=== PATIENT | female | born 1965 | race Caucasian/White ===

== ENCOUNTER 2019-10-15 09:32 | Inpatient (IN) | payer BC, MEDICAID, OTHER ==
[2019-10-15] MEDS: Propofol* 100 ML IV SCH ×2 (13:00→21:37)
[2019-10-15] MEDS ORDERED: NS 0.9% 1000 ML** 1,000 ML IV SCH (13:15)
[2019-10-15] MEDS ORDERED: Phytonadione IV (Adult)* 10 MG/ML 1 ML AMP IV ONE ×2 (13:31→14:30)
--- NOTE | 2019-10-15 14:08 | HP ---
History of Present Illness - History of Present Illness Reason for Visit: Respiratory distress History of Present Illness: HPI is obtained from nursing and from chart since patient is intubated and no family is present. Patient is a transfer from [facility]. Apparently she was at home, her son found her to have altered mental status and respiratory distress and called the ambulance. She was found to be obtunded and bipap was placed for hypercapnic respiratory failure. However, since she is a COVID r/o and having respiratory distress, the safe decision was made to intubate and transfer to [facility]. Only known medical history of ETOH abuse (according to chart, hasnt had etoh in 1 year), and COPD. PMH is otherwise unknown. Has not seen a doctor is 10years. Upon EMS arrival to her home, it was in disarray with a large number of cats and very strong cat urine odor. - Past Medical History Pulmonary: COPD Review of Systems - Review of Systems Constitutional: Positive: Other - ROS is unable to be attained d/t intubation/ sedation - Medications/Allergies Allergies/Adverse Reactions: Allergies Allergy/AdvReac Type Severity Reaction Status Date / Time Penicillins Allergy Unknown Verified 10/15/19 13:08 Reaction Details Medications: Current Medications Chlorhexidine Gluconate (Peridex Mouth Wash 0.12%*) 15 ml TOPICAL Q4H DONNA Sodium Chloride (Ns 0.9% 1000 Ml) 1,000 mls @ 50 mls/hr IV .PER RATE DONNA Propofol (Diprivan*) 100 mls @ 0 mls/hr IV .PER PROTOCOL DONNA; Protocol Nystatin (Nystatin Oint*) 1 applic TOPICAL BID DONNA Pantoprazole Sodium (Protonix Iv*) 40 mg IV Q24H DONNA Phytonadione (Vitamin K1 Inj (Adult)*) 2.5 mg IV ONCE ONE Stop: 10/15/19 13:32 Exam - Exam Vital Signs: Vital Signs (72 hours) 10/15/19 10/15/19 10/15/19 12:09 12:21 12:30 Temperature 96.8 F Pulse Rate 94 96 97 Respiratory 17 Rate Blood Pressure 143/125 148/100 (mmHg) O2 Sat by Pulse 89 100 100 Oximetry 10/15/19 10/15/19 10/15/19 12:49 13:00 13:15 Temperature Pulse Rate 96 93 91 Respiratory 16 Rate Blood Pressure 128/87 113/79 112/78 (mmHg) O2 Sat by Pulse 100 100 100 Oximetry General: No acute distress HEENT: Atraumatic, Other - Pupils pinpoint bilaterally. Lungs: Clear to auscultation Cardiovascular: Regular rate, No murmurs Abdomen: Normal bowel sounds - obese, Other - In the groin and panis area, there is a large area of redness and excoriation, concerning for fungus Extremities: Other - clubbing to nails, ?dirt under nails Neurological: Other - pupils pinpoint, breathing over vent. Otherwise CHAITANYA Assessment/Plan - Assessment/Plan Assessment: 53F with limited information, presents on 10/15/19 initially to [facility] with altered mental status and respiratory distress. Only known medical history of ETOH abuse and COPD. O2 sat on admission was 50%. She ultimately ended up requiring bipap and is being ruled out for COVID 19. Therefore, she was intubated and sent to [facility]. Diagnoses: 1. Acute hypoxic and hyercapnic respiratory failure 2. R/O COVID 19 3. AMS likely d/t CO2 retention 4. MITCHELL 5. Transaminitis 6. Supratherapeutic INR 7. Hyponatremia Plan: 1. Acute hypoxic and hyercapnic respiratory failure. Patient initially placed on bipap but needed to be intubated and transferred to [facility]. Her O2% on admission to [place] was 50% and CO2 was 77. Unknown if this is COPD exacerbation, CO2 retention, or COVID 19. 2. R/O COVID 19. Swab sent from [place]. Will need to follow up on results starting tomorrow. Continue airborne precautions. Will keep euvolemic. She may be dehydrated considering her low Na, creatinine of 1.5, and hgb 16. 3. She received 1L bolus at OSH. Will continue on NS @ 50cc/hr and transition to tube feeds tomorrow. 3. AMS likely d/t CO2 retention. Will keep sedated on ventilator with propofol and wean for RASS -2. 4. MITCHELL. Possibly d/t dehydration. Will continue with gently hydration and recheck BMP @ 1600. Monitor UOP. Will be cautious of IVF d/t PUI 5. Transaminitis. Possibly d/t etoh abuse, but unknown etiology at this time. Will trend. 6. Supratherapeutic INR. Likely r/t transaminitis, unknown what kind of home medications she may be on. Will give 2.5mg of Vitamin K and recheck INR in AM 7. Hyponatremia. Dehydration vs etoh abuse. Continue NS @ 50cc/hr 8. Probable fungal infection of of groin and panis. Nystatin ointment BID and keep dry 9. Leukocytosis. Unknown etiology. Will trend. Monitor for fevers. Disposition: patient was admitted to the ICU, transferred from [facility] Critical Care time: 45mins
[2019-10-15] MEDS ORDERED: Phytonadione IV (Adult)* 2.5 MG in NS 0.9% 50 ML* 50 ML IV ONE (15:00)
[2019-10-15] MEDS: Nystatin OINT* 15 GM TOPICAL SCH ×2 (15:17→21:12)
[2019-10-15] MEDS: Pantoprazole IV* 40 MG IV SCH (15:18)
[2019-10-15] MEDS: Chlorhexidine MOUTHWASH 0.12%* 15 ML UDC TOPICAL SCH ×3 (15:18→21:12)
[2019-10-15 17:29] LABS: Albumin 3.2 g/dL (3.2-5.2); Albumin/Globulin Ratio 1.3 (1-3); BUN/Creatinine Ratio 47.5 (8-20); Calcium 7.6 mg/dL (8.6-10.3); EGFR African American 56.4 (>60); EGFR Non-African American 46.6 (>60); Globulin 2.5 g/dL (2-4); Total Bilirubin 3.5 mg/dL (0.2-1.0); Total Protein 5.7 g/dL (6.4-8.9)
[2019-10-15 17:46] LABS: Hematocrit 48 % (35-47); Hemoglobin 15.6 g/dL (12.0-16.0); Mean Corpuscular HGB Conc 32 g/dL (31-36); Mean Corpuscular Hemoglobin 31 pg (27-31); Mean Corpuscular Volume 96 fL (80-97); Mean Platelet Volume 8.4 fL (7.4-10.4); Platelet Count 49 10^3/uL (150-450); Potassium 4.8 mmol/L (3.5-5.0); Red Blood Count 5.03 10^6 /uL (3.70-4.87); Red Cell Distribution Width 16 % (10-15); White Blood Count 23.5 10^3/uL (3.5-10.8)
[2019-10-16] MEDS: Chlorhexidine MOUTHWASH 0.12%* 15 ML UDC TOPICAL SCH ×6 (00:37→21:17)
[2019-10-16 05:02] LABS: Hematocrit 51 % (35-47); Hemoglobin 16.1 g/dL (12.0-16.0); Mean Corpuscular HGB Conc 32 g/dL (31-36); Mean Corpuscular Hemoglobin 31 pg (27-31); Mean Corpuscular Volume 97 fL (80-97); Mean Platelet Volume 9.1 fL (7.4-10.4); Platelet Count 42 10^3/uL (150-450); Red Blood Count 5.23 10^6 /uL (3.70-4.87); Red Cell Distribution Width 16 % (10-15); White Blood Count 22.3 10^3/uL (3.5-10.8)
[2019-10-16 05:07] LABS: INR 1.56 (0.82-1.09)
[2019-10-16 05:16] LABS: Albumin 3.2 g/dL (3.2-5.2); Albumin/Globulin Ratio 1.2 (1-3); BUN/Creatinine Ratio 61.1 (8-20); Calcium 7.9 mg/dL (8.6-10.3); EGFR African American 73.9 (>60); EGFR Non-African American 61.1 (>60); Globulin 2.6 g/dL (2-4); Total Protein 5.8 g/dL (6.4-8.9)
[2019-10-16] MEDS: Propofol* 100 ML IV SCH ×4 (05:29→21:19)
[2019-10-16 05:37] LABS: Potassium 5.2 mmol/L (3.5-5.0)
[2019-10-16 05:43] LABS: Polychromasia 1+
[2019-10-16 05:45] LABS: ABS Monocytes 1.4 10^3/ul (0-0.8); ABS Neutrophils 19.8 10^3/ul (1.5-7.7); ABS Nucleated RBC 0.4 10^3/ul; Eosinophil % 0.2 %; Lymphocyte % 4.4 %; Nucleated Red Blood Cells % 1.9
[2019-10-16] MEDS: Multivitamins ADULT w/MIN LIQ* 15 ML UDC PO SCH (07:41)
[2019-10-16] MEDS: Nystatin OINT* 15 GM TOPICAL SCH ×2 (07:41→21:17)
[2019-10-16] MEDS: Thiamine TAB* 100 MG TAB PO SCH (07:42)
[2019-10-16] MEDS ORDERED: Azithromycin 500 mg/250 ml NS 500 MG/250 ML BAG IVPB SCH (08:00)
[2019-10-16] MEDS ORDERED: Ciprofloxacin 400MG IVPREMIX(* 400 MG/200 ML BAG IVPB SCH (08:00)
[2019-10-16] MEDS ORDERED: Metoprolol Tartrate IV* 1 MG/ML 5 ML VIAL ONE (10:16)
[2019-10-16] MEDS: cefTRIAXone(*) 1 GM in NS 0.9% 50 ML* 50 ML IVPB SCH (11:51)
[2019-10-16] MEDS: metroNIDAZOLE IV 500 MG/100ML* 500 MG/100 ML BAG IVPB SCH ×2 (12:29→16:44)
[2019-10-16 13:15] LABS: BUN/Creatinine Ratio 69.1 (8-20); Blood Urea Nitrogen 47 mg/dL (6-24); CO2 Carbon Dioxide 35 mmol/L (22-32); Calcium 7.7 mg/dL (8.6-10.3); Chloride 88 mmol/L (101-111); EGFR African American 108.7 (>60); EGFR Non-African American 89.8 (>60); Glucose 131 mg/dL (70-100); Magnesium 2.4 mg/dL (1.9-2.7); Phosphorus 2.2 mg/dL (2.5-5.0); Sodium 126 mmol/L (135-145)
[2019-10-16] MEDS: Metoprolol Tartrate IV* 1 MG/ML 5 ML VIAL IV PRN (13:18)
[2019-10-16] MEDS: Azithromycin IV(*) 250 MG in NS 0.9% 250 ML* 250 ML IVPB SCH (13:59)
[2019-10-16 14:15] LABS: Troponin I 0.04 ng/mL (<0.03)
[2019-10-16 14:17] LABS: Anion Gap 3 mmol/L (2-11)
[2019-10-16] MEDS: Pantoprazole IV* 40 MG IV SCH (15:07)
[2019-10-16 15:30] LABS: BUN/Creatinine Ratio 75.4 (8-20); EGFR African American 133.2 (>60); EGFR Non-African American 110.1 (>60)
[2019-10-16] MEDS ORDERED: Furosemide IV* 10 MG/ML 2 ML VIAL (20 MG) IV SLOW PU ONE ×2 (17:23→18:00)
--- NOTE | 2019-10-16 18:21 | PN ---
<Lina Ellis - Last Filed: 10/16/19 18:19> Progress Note - Progress Note Date of Service: 10/16/19 Note: Central Line Procedure Note Indication: Access Diagnosis: Acute respiratory failure, AMS, r/o COVID Performed by: Nova, supervised by Dr Ai Connell Consent: Informed; placed in bedside chart Risks of procedure were explained if possible, all risks of pain/discomfort, bleeding, infection, PTX, Hemotx, need for chest tube, air/wire embolism, vessel injury, , and failed procedure disclosed and understanding verbalized [place] Protocol: Time-out was performed and the correct patient and site were verified - Prior labs/history was reviewed prior to procedure - Full sterile precautions with chlorhexidine/full drapes/gowns/gloves utilized - Right IJ visualized with ultrasound - Vessel accessed under ultrasound guidance with return of nonpulsatile blood. A guidewire was passed into vessel and confirmed in vessel with ultrasound. 1 attempt was made to access vessel. Vessel was dilated and cathetor was passed over wire into vessel. All ports demonstrated good blood return and flushed. Catheter was sutured to site and dressing applied. Adequate hemostasis was achieved EBL 5 cc No immediate complications noted, patient tolerated procedure well. Post Procedure CXR: Pending <Ai Connell - Last Filed: 10/17/19 15:54> Progress Note - Progress Note Note: Informed consent was obtained over the phone from her son. Chest xray showed central line in the superior vena cava without complications.
--- NOTE | 2019-10-16 18:33 | PN ---
Date of Service: 10/16/19 Critical Care Services: No acute events overnight. Remains comfortable on propofol for sedation. EtCO2 elevated so pressure control was increased to 26. Vital Signs: Temp Pulse Resp BP SpO2 FiO2 98.3 F 86 23 111/61 96 45 10/16/19 15:23 10/16/19 18:00 10/16/19 18:00 10/16/19 18:00 10/16/19 18:00 10/15 16:29 Physical Exam: Gen: Laying in bed, NAD, sedated on propofol. HEENT: Normocephalic, atraumatic, moist mucus membranes, neck supple Lungs: clear to auscultation, diminished in bases, no rhonchi, crackles or wheezes Cardiac: tachycardic, s1s2, no obvious murmurs Abdomen: obese, soft, BS present Extremities: Dirt under fingernails, toes are dirty and purple, about the same from yesterday. Poor general circulation. cool to touch. Skin: patient has very red, inflammed, rash with excoriated wounds to lower abdomen/panis/groin Neuro: Sedated, not paused for exam , just prior to CVC insertion. PERRL 3mm. Minimal spontaneous movement all extremities, breathing above vent. Fluid Balance (Past 24 Hours): I= O= Net Intake & Output 10/14/19 10/15/19 10/16/19 10/17/19 06:59 06:59 06:59 06:59 Intake Total 921 675 Output Total 1010 665 Balance -89 10 Weight 213 lb 13.574 oz Intake: IV Fluids 701 544 ABX - AZITHROMYCIN 270 ABX - CEFTRIAXONE 58 ABX - FLAGYL 108 NS (0.9%) 701 108 IVPB 50 Vitamin K 50 Medicated IV 170 131 CC - Propofol/Diprivan 170 131 Output: Castillo 1010 665 Labs: Laboratory Results - last 24 hr 10/16/19 10/16/19 10/16/19 04:50 04:50 04:50 WBC 22.3 H RBC 5.23 H Hgb 16.1 H Hct 51 H MCV 97 MCH 31 MCHC 32 RDW 16 H Plt Count 42 L MPV 9.1 Neut % (Auto) 88.8 Lymph % (Auto) 4.4 [place] % (Auto) 6.4 Eos % (Auto) 0.2 Baso % (Auto) 0.2 Absolute Neuts (auto) 19.8 H Absolute Lymphs (auto) 1.0 Absolute Monos (auto) 1.4 H Absolute Eos (auto) 0.0 Absolute Basos (auto) 0.0 Absolute Nucleated RBC 0.4 Immature Gran % 6.0 Neutrophils % 84.0 Band Neutrophils % 4.0 Lymphocytes % 4.0 Monocytes % 6.0 Metamyelocytes % 1.0 Myelocytes % 1.0 Nucleated RBC % 1.9 Nucleated RBCs/100 WBC 3.0 H Normal RBC Morphology Not Reportable Polychromasia 1+ Anisocytosis 1+ INR (Anticoag Therapy) 1.56 H Patient Temperature ABG pH ABG pH (Temp Correct) ABG pCO2 ABG pCO2 (Temp Corrct ABG pO2 ABG pO2 (Temp Correct ABG HCO3 ABG O2 Saturation ABG Base Excess Respiration Rate Ventilator Type Vent Mode FiO2 Inspiratory Time PEEP Pressure Support Pressure Control EPAP IPAP BiPAP Sodium 124 L Potassium 5.2 H Chloride 86 L Carbon Dioxide 34 H Anion Gap 4 BUN 58 H Creatinine 0.95 Est GFR ( Amer) 73.9 Est GFR (Non-Af Amer) 61.1 BUN/Creatinine Ratio 61.1 H Glucose 119 H Calcium 7.9 L Phosphorus Magnesium Total Bilirubin 3.00 H AST 385 H ALT 850 H Alkaline Phosphatase 132 H Total Creatine Kinase 406 H Troponin I Total Protein 5.8 L Albumin 3.2 Globulin 2.6 Albumin/Globulin Ratio 1.2 10/16/19 10/16/19 10/16/19 06:27 08:18 13:00 WBC RBC Hgb Hct MCV MCH MCHC RDW Plt Count MPV Neut % (Auto) Lymph % (Auto) [place] % (Auto) Eos % (Auto) Baso % (Auto) Absolute Neuts (auto) Absolute Lymphs (auto) Absolute Monos (auto) Absolute Eos (auto) Absolute Basos (auto) Absolute Nucleated RBC Immature Gran % Neutrophils % Band Neutrophils % Lymphocytes % Monocytes % Metamyelocytes % Myelocytes % Nucleated RBC % Nucleated RBCs/100 WBC Normal RBC Morphology Polychromasia Anisocytosis INR (Anticoag Therapy) Patient Temperature Not Reportable ABG pH 7.27 L ABG pH (Temp Correct) Not Reportable ABG pCO2 68 H ABG pCO2 (Temp Corrct Not Reportable ABG pO2 171 H ABG pO2 (Temp Correct Not Reportable ABG HCO3 26.7 ABG O2 Saturation 99.4 H ABG Base Excess 2.3 H Respiration Rate 22 Ventilator Type Not Reportable Vent Mode pcv FiO2 55 Inspiratory Time 0.8 PEEP 5 Pressure Support Not Reportable Pressure Control 22 EPAP Not Reportable IPAP Not Reportable BiPAP Not Reportable Sodium 126 L Potassium 5.4 H TNP Chloride 88 L Carbon Dioxide 35 H Anion Gap 3 BUN 47 H Creatinine 0.68 Est GFR ( Amer) 108.7 Est GFR (Non-Af Amer) 89.8 BUN/Creatinine Ratio 69.1 H Glucose 131 H Calcium 7.7 L Phosphorus 2.2 L Magnesium Cancelled 2.4 Total Bilirubin AST ALT Alkaline Phosphatase Total Creatine Kinase Troponin I 0.04 H* Total Protein Albumin Globulin Albumin/Globulin Ratio 10/16/19 15:05 WBC RBC Hgb Hct MCV MCH MCHC RDW Plt Count MPV Neut % (Auto) Lymph % (Auto) [place] % (Auto) Eos % (Auto) Baso % (Auto) Absolute Neuts (auto) Absolute Lymphs (auto) Absolute Monos (auto) Absolute Eos (auto) Absolute Basos (auto) Absolute Nucleated RBC Immature Gran % Neutrophils % Band Neutrophils % Lymphocytes % Monocytes % Metamyelocytes % Myelocytes % Nucleated RBC % Nucleated RBCs/100 WBC Normal RBC Morphology Polychromasia Anisocytosis INR (Anticoag Therapy) Patient Temperature ABG pH ABG pH (Temp Correct) ABG pCO2 ABG pCO2 (Temp Corrct ABG pO2 ABG pO2 (Temp Correct ABG HCO3 ABG O2 Saturation ABG Base Excess Respiration Rate Ventilator Type Vent Mode FiO2 Inspiratory Time PEEP Pressure Support Pressure Control EPAP IPAP BiPAP Sodium 128 L Potassium 5.0 Chloride 91 L Carbon Dioxide 32 Anion Gap 5 BUN 43 H Creatinine 0.57 Est GFR ( Amer) 133.2 Est GFR (Non-Af Amer) 110.1 BUN/Creatinine Ratio 75.4 H Glucose 125 H Calcium 7.0 L Phosphorus Magnesium Total Bilirubin AST ALT Alkaline Phosphatase Total Creatine Kinase Troponin I Total Protein Albumin Globulin Albumin/Globulin Ratio Studies: Gallbladder US 10/15: Hepatomegaly and hepatosteatosis CXR 10/15: no significant interval change CXR: 10/14: Mild patchy prominence of the interstitial markings and alveolar consolidation bilaterally concerning for bronchopneumonia without significant change. Suggestion of bulla at the left lung apex. Nutrition: Jevity 1.2 Impression: 53F with only known COPD and etoh/tobacco abuse, presents on 10/15/19 with AMS and respiratory distress. She was ultimately intubated and COVID sent out. Transferred from [facility]. DIAGNOSES: 1. Acute hypoxic and hypercapnic respiratory failure 2. R/O COVID 19 3. AMS likely d/t CO2 retention 4. MITCHELL 5. Transaminitis 6. Supratherapeutic INR 7. Hyponatremia Plan: NEURO: - Sedated with propofol with goal RASS -2 CVS: - BP appears stable - right IJ was inserted today for access. CXR confirmed placement - patient started going into irregular rhythm, resembling afib/aflutter at times. HR would go up into 140's. Was given PRN metoprolol with positive effect. PULMONARY: - Acute hypoxic and hypercapnic respiratory failure. Increased pressure control this AM d/t high EtCO2. Will trend these - Chest xray appears stable - COPD. Continue supportive treatment. Patient continues to smoke 1-2 PPD per her son. GI: - Started TF. Discontinued IVF - LFTs are trending down. RUQ US showed only hepatomegaly and hepatosteatos RENAL: - Replace electrolytes to keep K >4 and mag >2. Difficulty with the lab to get an accurate K level. Final level was 5. Will be given 20mg lasix to help reduce this slowly. Also need to aim for euvomlemia to hypovolemia. - Continue castillo - Kidney function is normalizing ENDOCRINE: - Na is normalizing. HEME: - INR trending down. Most recent was 1.56. - Thrombocytopenia. acute, unknown baseline or etiology. Infection vs etoh abuse. - Consider chemical DVT prophylaxis tomorrow. ID: - WBC continue to be elevated and initial blood cultures at [place] were positive. Ordered Wounds: significant rash/excoriation to abdomen/panis/groin. Wound care consult ordered GI prophylaxis: PPI DVT prophylaxis: SCDs. Consider starting lovenox tomorrow now that INR is trending down and kidney function is improving Code status: full Disposition: patient requires critical care for respiratory failure, ventilator management Critical Care Time: 30 mins excluding procedures
[2019-10-16] MEDS ORDERED: Furosemide IV* 10 MG/ML 2 ML VIAL (20 MG) IV ONE (20:00)
[2019-10-17] MEDS: metroNIDAZOLE IV 500 MG/100ML* 500 MG/100 ML BAG IVPB SCH ×3 (00:43→17:07)
[2019-10-17] MEDS: Chlorhexidine MOUTHWASH 0.12%* 15 ML UDC TOPICAL SCH ×7 (00:43→23:29)
[2019-10-17] MEDS: Metoprolol Tartrate IV* 1 MG/ML 5 ML VIAL IV PRN (02:01)
--- NOTE | 2019-10-17 03:25 | PN ---
Hospitalist Progress Note Date of Service: 10/17/19 HOSPITALIST ADDENDUM Called by RN because BP is trending down, with SBP in the mid 70s. She was diuresed during day shift and as per progress note they're aiming for euvolemia , so will avoid IVF for now. Start low dose Levophed and monitor.
[2019-10-17] MEDS: Norepinephrine 16MCG/ML IVPRE* 4,000 MCG/250 ML BAG IV SCH ×2 (03:54→15:52)
[2019-10-17 06:16] LABS: ABS Monocytes 1.6 10^3/ul (0-0.8); ABS Neutrophils 17.2 10^3/ul (1.5-7.7); ABS Nucleated RBC 0.1 10^3/ul; Eosinophil % 0.2 %; Hematocrit 48 % (35-47); Hemoglobin 15.4 g/dL (12.0-16.0); Lymphocyte % 5.1 %; Mean Corpuscular HGB Conc 32 g/dL (31-36); Mean Corpuscular Hemoglobin 31 pg (27-31); Mean Corpuscular Volume 96 fL (80-97); Mean Platelet Volume 10.4 fL (7.4-10.4); Nucleated Red Blood Cells % 0.5; Platelet Count 50 10^3/uL (150-450); Red Blood Count 4.98 10^6 /uL (3.70-4.87); Red Cell Distribution Width 16 % (10-15); White Blood Count 19.8 10^3/uL (3.5-10.8)
[2019-10-17 06:28] LABS: Albumin 2.9 g/dL (3.2-5.2); Albumin/Globulin Ratio 1.1 (1-3); Alkaline Phosphatase 125 U/L (34-104); BUN/Creatinine Ratio 59.6 (8-20); Blood Urea Nitrogen 34 mg/dL (6-24); CO2 Carbon Dioxide 39 mmol/L (22-32); Chloride 88 mmol/L (101-111); EGFR African American 133.2 (>60); EGFR Non-African American 110.1 (>60); Globulin 2.6 g/dL (2-4); Glucose 197 mg/dL (70-100); Sodium 128 mmol/L (135-145); Total Protein 5.5 g/dL (6.4-8.9)
[2019-10-17 06:45] LABS: Anion Gap 1 mmol/L (2-11)
[2019-10-17 06:50] LABS: ALT 537 U/L (7-52)
[2019-10-17] MEDS: Thiamine TAB* 100 MG TAB PO SCH (07:52)
[2019-10-17] MEDS: Nystatin OINT* 15 GM TOPICAL SCH ×2 (07:52→21:05)
[2019-10-17] MEDS: Multivitamins ADULT w/MIN LIQ* 15 ML UDC PO SCH (07:52)
[2019-10-17] MEDS: Folic Acid TAB* 1 MG PO SCH (07:52)
[2019-10-17 08:41] LABS: Creatine Kinase 131 U/L (10-223)
[2019-10-17 08:44] LABS: Magnesium 2.3 mg/dL (1.9-2.7)
[2019-10-17 08:48] LABS: Troponin I 0.06 ng/mL (<0.03)
[2019-10-17] MEDS: cefTRIAXone(*) 1 GM in NS 0.9% 50 ML* 50 ML IVPB SCH (08:59)
[2019-10-17] MEDS: Senna TAB 8.6 mg* TAB PO SCH ×2 (09:37→20:45)
[2019-10-17] MEDS: Docusate LIQ* 100 MG/10 ML UDC PO SCH ×2 (09:37→20:45)
[2019-10-17] MEDS: Azithromycin IV(*) 250 MG in NS 0.9% 250 ML* 250 ML IVPB SCH (10:27)
[2019-10-17] MEDS: Enoxaparin(*) 40 MG/0.4 ML SYR SUBCUT SCH (13:38)
[2019-10-17] MEDS: Pantoprazole IV* 40 MG IV SCH (13:38)
--- NOTE | 2019-10-17 14:37 | PN ---
Date of Service: 10/17/19 Critical Care Services: Overnight patient became agitated and attempted to self extubate. Propofol was increased and BP decreased. Levo was started low dose since we are avoiding giving additional fluids at this time. Has afib intermittently. Vital Signs: Temp Pulse Resp BP SpO2 FiO2 96.6 F 101 16 100/68 97 45 10/17/19 13:30 10/17/19 13:30 10/17/19 13:00 10/17/19 13:30 10/17/19 13:30 10/16 12:00 Physical Exam: Gen: Laying in bed, NAD, sedated on propofol. HEENT: Normocephalic, atraumatic, moist mucus membranes, neck supple Lungs: clear to auscultation, no rhonchi, crackles or wheezes Cardiac: regular, s1s2, no obvious murmurs Abdomen: obese, soft, BS present Extremities: Dirt under fingernails, toes are dirty and purple, no change since admission. Poor general circulation. distally cool to touch. Skin: patient has very red, inflammed, rash with excoriated wounds to lower abdomen/panis/groin Neuro: Sedated, not paused for exam, PERRL 4mm. Not breathing above vent. Minimal movement BUE on noxious stimuli. Fluid Balance (Past 24 Hours): I= O= Net Intake & Output 10/15/19 10/16/19 10/17/19 10/18/19 06:59 06:59 06:59 06:59 Intake Total 921 1120 1475.5 Output Total 1010 1960 405 Balance -89 -840 1070.5 Weight 213 lb 13.574 oz 211 lb 13.828 oz Intake: IV Fluids 701 584 43.5 ABX - AZITHROMYCIN 270 ABX - CEFTRIAXONE 58 ABX - FLAGYL 108 NS (0.9%) 701 148 43.5 IVPB 50 227 400 ABX - AZITHROMYCIN 250 ABX - CEFTRIAXONE 50 Flagyl 227 100 Vitamin K 50 Medicated IV 170 309 404 CC - Norepinephrine/ 176 Levophed CC - Propofol/Diprivan 170 309 228 Tube Feeding 578 Tube Feeding Flush Amount 50 Output: Castillo 1010 1960 405 Labs: Laboratory Results - last 24 hr 10/16/19 10/17/19 10/17/19 15:05 05:48 05:48 WBC 19.8 H RBC 4.98 H Hgb 15.4 Hct 48 H MCV 96 MCH 31 MCHC 32 RDW 16 H Plt Count 50 L MPV 10.4 Neut % (Auto) 86.8 Lymph % (Auto) 5.1 [place] % (Auto) 7.9 Eos % (Auto) 0.2 Baso % (Auto) 0.0 Absolute Neuts (auto) 17.2 H Absolute Lymphs (auto) 1.0 Absolute Monos (auto) 1.6 H Absolute Eos (auto) 0.0 Absolute Basos (auto) 0.0 Absolute Nucleated RBC 0.1 Nucleated RBC % 0.5 Sodium 128 L Potassium 5.0 Chloride 91 L Carbon Dioxide 32 Anion Gap 5 BUN 43 H Creatinine 0.57 Est GFR ( Amer) 133.2 Est GFR (Non-Af Amer) 110.1 BUN/Creatinine Ratio 75.4 H Glucose 125 H Lactic Acid 0.9 Calcium 7.0 L Magnesium Total Bilirubin AST ALT Alkaline Phosphatase Total Creatine Kinase Troponin I Total Protein Albumin Globulin Albumin/Globulin Ratio 10/17/19 10/17/19 05:48 08:03 WBC RBC Hgb Hct MCV MCH MCHC RDW Plt Count MPV Neut % (Auto) Lymph % (Auto) [place] % (Auto) Eos % (Auto) Baso % (Auto) Absolute Neuts (auto) Absolute Lymphs (auto) Absolute Monos (auto) Absolute Eos (auto) Absolute Basos (auto) Absolute Nucleated RBC Nucleated RBC % Sodium 128 L Potassium TNP TNP Chloride 88 L Carbon Dioxide 39 H Anion Gap 1 L BUN 34 H Creatinine 0.57 Est GFR ( Amer) 133.2 Est GFR (Non-Af Amer) 110.1 BUN/Creatinine Ratio 59.6 H Glucose 197 H Lactic Acid Calcium 8.0 L Magnesium 2.3 Total Bilirubin 1.90 H AST TNP TNP ALT 537 H Alkaline Phosphatase 125 H Total Creatine Kinase 131 Troponin I 0.06 H* Total Protein 5.5 L Albumin 2.9 L Globulin 2.6 Albumin/Globulin Ratio 1.1 Studies: Gallbladder US 10/15: Hepatomegaly and hepatosteatosis CXR 10/15: no significant interval change CXR: 10/14: Mild patchy prominence of the interstitial markings and alveolar consolidation bilaterally concerning for bronchopneumonia without significant change. Suggestion of bulla at the left lung apex. Nutrition: Jevity 1.2, goal rate 50cc/hr Impression: 53F with only known PMH COPD and etoh/tobacco abuse, presents on 10/15/19 with AMS and respiratory distress. She was ultimately intubated and COVID sent out. Transferred from [facility]. DIAGNOSES: 1. Acute hypoxic and hypercapnic respiratory failure 2. R/O COVID 19 3. AMS likely d/t CO2 retention 4. Transaminitis 5. Hyponatremia 6. COPD Plan: NEURO: - Sedated with propofol with goal RASS -2 - Unable to wean propofol d/t agitation and patient attempting to self extubate overnight CVS: - BP became low overnight, likely d/t increased propofol. She remains on a low dose of levo. - right IJ placed 10/16/19 - Patient having intermittent episodes of irregular heart rhythm. It appears to be sinus arrhythmia, sometimes aflutter, and other times NSR rate controlled. - Continue with PRN metoprolol. - Patient will need to be considered for anticoagulation in the future d/t afib.aflutter. - Troponins slightly elevated, will continue to trend PULMONARY: - Acute hypoxic and hypercapnic respiratory failure. Pressure control at 30 is controlling EtCO2. - Attempted PST but she became agitated and desatting. - Daily PST as tolerated - Chest xray appears stable - COPD. Continue supportive treatment. Patient continues to smoke 1-2 PPD per her son. GI: - Continue TF. Jevity @ 50cc/hr which is goal. - LFTs are trending down. RUQ US showed only hepatomegaly and hepatosteatos - Added bowel meds RENAL: - Replace electrolytes to keep K >4 and mag >2. Continue to have difficulty with the lab to get an accurate K level. Samples keep hemolyzing despite easy sample collection from CVC. Aim for euvomlemia. Ok to give gentle hydration if needed but she is enough volume IV - Continue castillo - Kidney function is normalizing - CPK 131 ENDOCRINE: - Na 122 on presentation - Na is normalizing. HEME: - INR trending down. - Thrombocytopenia. acute, unknown baseline or etiology. Infection vs etoh abuse. - Started lovenox 40mg daily ID: - WBC continue to be elevated and initial blood cultures at [place] were positive. on 10/15, started azithromycin, ceftriaxone, and flagyl. Patient received ceftriaxone at [place] without issues Wounds: significant rash/excoriation to abdomen/panis/groin. Wound care consult ordered GI prophylaxis: PPI DVT prophylaxis: SCDs and lovenox Code status: full Disposition: patient requires critical care for respiratory failure, ventilator management Critical Care Time: 30 mins
[2019-10-17 16:44] LABS: Anion Gap 4 mmol/L (2-11); BUN/Creatinine Ratio 61.4 (8-20); Blood Urea Nitrogen 27 mg/dL (6-24); CO2 Carbon Dioxide 37 mmol/L (22-32); Calcium 7.6 mg/dL (8.6-10.3); Chloride 90 mmol/L (101-111); EGFR African American 179.6 (>60); EGFR Non-African American 148.5 (>60); Glucose 185 mg/dL (70-100); Sodium 131 mmol/L (135-145)
[2019-10-17 16:47] LABS: Troponin I 0.05 ng/mL (<0.03)
[2019-10-17 17:42] LABS: Potassium Redraw 4.5 mmol/L (3.5-5.0)
[2019-10-17] MEDS: Propofol* 100 ML IV SCH ×2 (20:19→23:29)
[2019-10-18] MEDS: metroNIDAZOLE IV 500 MG/100ML* 500 MG/100 ML BAG IVPB SCH ×2 (02:37→10:32)
[2019-10-18] MEDS ORDERED: NS 0.9% 500 ML* 500 ML IV ONE ×2 (02:42→03:45)
[2019-10-18] MEDS: Propofol* 100 ML IV SCH ×3 (03:21→16:58)
[2019-10-18] MEDS: Chlorhexidine MOUTHWASH 0.12%* 15 ML UDC TOPICAL SCH ×5 (04:01→20:35)
[2019-10-18] MEDS: NS 0.9% 1000 ML** 1,000 ML IV SCH ×2 (04:26→16:57)
[2019-10-18 05:09] LABS: Hematocrit 47 % (35-47); Hemoglobin 14.7 g/dL (12.0-16.0); Mean Corpuscular HGB Conc 32 g/dL (31-36); Mean Corpuscular Hemoglobin 30 pg (27-31); Mean Corpuscular Volume 96 fL (80-97); Platelet Count 47 10^3/uL (150-450); Red Blood Count 4.84 10^6 /uL (3.70-4.87); Red Cell Distribution Width 16 % (10-15); White Blood Count 14.2 10^3/uL (3.5-10.8)
[2019-10-18 05:15] LABS: INR 1.24 (0.82-1.09)
[2019-10-18 05:25] LABS: BUN/Creatinine Ratio 48.8 (8-20); Blood Urea Nitrogen 20 mg/dL (6-24); CO2 Carbon Dioxide 37 mmol/L (22-32); Calcium 7.3 mg/dL (8.6-10.3); Chloride 94 mmol/L (101-111); EGFR African American 194.9 (>60); EGFR Non-African American 161.1 (>60); Glucose 168 mg/dL (70-100); Magnesium 2.2 mg/dL (1.9-2.7); Potassium 4.4 mmol/L (3.5-5.0); Sodium 131 mmol/L (135-145)
[2019-10-18 06:04] LABS: ABS Basophils 0.1 10^3/ul (0-0.2); ABS Eosinophils 0.1 10^3/ul (0-0.6); ABS Lymphocytes 0.9 10^3/ul (1.0-4.8); ABS Monocytes 1.4 10^3/ul (0-0.8); ABS Neutrophils 11.7 10^3/ul (1.5-7.7); Eosinophil % 0.8 %; Lymphocyte % 6.6 %; Nucleated Red Blood Cells % 0.1
[2019-10-18] MEDS: Metoprolol Tartrate IV* 1 MG/ML 5 ML VIAL IV PRN (06:49)
[2019-10-18] MEDS: Phenylephrine 10 MG/ML VIAL* 50 MG in NS 0.9% 250 ML* 245 ML IV SCH ×2 (06:57→23:07)
[2019-10-18 07:57] LABS: ALT 322 U/L (7-52); AST 61 U/L (13-39); Albumin 2.6 g/dL (3.2-5.2); Alkaline Phosphatase 109 U/L (34-104); Globulin 2.6 g/dL (2-4); Indirect Bilirubin 0.7 mg/dL (0.3-1.0); Total Protein 5.2 g/dL (6.4-8.9)
--- NOTE | 2019-10-18 08:26 | ECHO ---
*[facility]* [place] [address] Fax #: [phone] Transthoracic Echocardiogram Patient: Serena Dee : 1965 Study Date: 10/18/2019 Age: 53 Gender: F HR: 90 bpm Height: 64 in /162.6 cm BSA: 2 m^2 Weight: 210.6 lb /95.7 kg BMI: 36.2 kg/m^2 *Process Equipment Operator: * Mandy Nix [facility] *Referring Physician: * Lina Ellis *Reading Physician: * Nj Garcia MD Indications: Abnormal EKG. History: Atrial fibrillation. Chronic obstructive pulmonary disease. ETOH abuse in past. Conclusions Summary: - Left ventricle: The cavity size is below normal. Wall thickness is moderately increased. Systolic function is at the lower limits of normal. The estimated ejection fraction is 50-55%. Wall motion is normal; there are no regional wall motion abnormalities. - Right ventricle: The cavity size is moderately dilated. Systolic pressure is moderately increased. - Ventricular septum: There is septal flattening of the interventricular septum consistent with RV volume or pressure overload. - Mitral valve: There is trace regurgitation. - Aortic valve: There is no evidence of stenosis. There is no significant regurgitation. - Tricuspid valve: There is mild regurgitation. - Pericardium, extracardiac: There is no significant pericardial effusion. - Pulmonary arteries: Systolic pressure is moderately increased. - Study data: No prior study is available for comparison. Study data: Transthoracic echocardiogram. Procedure: Transthoracic echocardiography was performed. Image quality was fair. The study was technically limited due to Patient on ventilator. Complete 2D, spectral Doppler, and color flow Doppler. Location: ICU Patient status: Inpatient. Patient room number: ICU-06. No prior study is available for comparison. Rhythm: Normal sinus rhythm with PAC's. Findings Left ventricle: The cavity size is below normal. Wall thickness is moderately increased. Systolic function is at the lower limits of normal. The estimated ejection fraction is 50-55%. Wall motion is normal; there are no regional wall motion abnormalities. Left ventricular diastolic function parameters are indeterminate. Right ventricle: The cavity size is moderately dilated. Systolic function is low normal. Systolic pressure is moderately increased. Ventricular septum: There is septal flattening of the interventricular septum consistent with RV volume or pressure overload. Left atrium: The atrium is moderately dilated. Right atrium: The atrium is mildly dilated. Mitral valve: The leaflets are mildly thickened. There is no evidence of stenosis. There is trace regurgitation. Aortic valve: The valve is trileaflet. The leaflets are normal thickness. There is no evidence of stenosis. There is no significant regurgitation. Tricuspid valve: The leaflets are normal thickness. There is no evidence of stenosis. There is mild regurgitation. Pulmonic valve: Not well visualized. There is no evidence of stenosis. Aorta: Aortic root: The aortic root is appears normal. Ascending aorta: The ascending aorta is appears normal. Aortic arch: The aortic arch is appears normal. Pericardium: A prominent pericardial fat pad is present. There is no significant pericardial effusion. Pulmonary arteries: The main pulmonary artery is normal-sized. Systolic pressure is moderately increased. Systemic veins: Inferior vena cava: The vessel is dilated. There is (< 50%) respiratory change in the IVC dimension. Patient is sedated, intubated, and mechanically ventilated. Measurements Left ventricle Value Ref Aortic valve Value Ref MAGALIE, LAX (L) 3.0 cm 3.8 - 5.2 Seema diam, ED 2.0 cm ----- ESD, LAX (L) 2.1 cm 2.2 - 3.5 Peak v, S 1.11 m/sec ----- FS, LAX 31 % 27 - 45 VTI, S 17.0 cm ----- PW, ED, LAX (H) 1.3 cm 0.6 - 0.9 Mean grad, S 3.0 mm Hg ----- FS 31 % 27 - 45 Peak grad, S 5.0 mm Hg ----- Mid-wall FS 8 % LVOT/AV, VTI ratio 0.94 ----- PW, ED (H) 1.3 cm 0.6 - 0.9 E', lat seema, TDI (L) 8.8 cm/sec >=10.0 Mitral valve Value Ref E/e', lat seema, 8 Peak E 0.67 m/sec ----- TDI Peak A 0.56 m/sec ----- E', med seema, TDI 7.5 cm/sec >=7.0 Decel time 176 ms --- -- E/e', med seema, 9 Peak E/A ratio 1.2 ----- TDI E', avg, TDI 8.2 cm/sec Pulmonic valve Value Ref E/e', avg, TDI 8 <=14 Peak v, S 0.95 m/sec --- -- Peak grad, S 4.0 mm Hg ----- LVOT Value Ref Peak deborah, S 1 m/sec Tricuspid valve Value Ref VTI, S 16.0 cm TR peak v (H) 2.9 m/sec <=2.8 Peak grad, S 4 mm Hg Peak RV-RA grad, S 34 mm Hg ----- Mean grad, S 2 mm Hg Aortic root Value Ref Ventricular septum Value Ref Root diam 2.7 cm <4.1 IVS, ED (H) 1.4 cm 0.6 - 0.9 Ascending aorta Value Ref Right ventricle Value Ref AAo AP diam, S 3.0 cm ----- MAGALIE, LAX 3.2 cm MAGALIE minor ax, A4C (H) 4.3 cm 1.9 - 3.5 Aortic arch Value Ref mid Arch diam 1.9 cm ----- Pressure, S 50 mm Hg Decending aorta Value Ref Left atrium Value Ref Katie peak deborah 0.54 m/sec ----- AP dim, ES 3.10 cm 2.70 - 3.80 Pulmonary artery Value Ref ML dim, A4C 4.3 cm Pressure, S 46.0 mm Hg ----- SI dim, A4C 5.7 cm Vol/bsa, ES, 1-p (H) 41 ml/m^2 11 - 40 Inferior vena cava Value Ref A4C Diam 3.1 cm ----- Vol/bsa, ES, A/L (H) 42 ml/m^2 16 - 34 Right atrium Value Ref SI dim, ES (H) 5.6 cm 3.4 - 5.3 ML dim, ES, A4C (H) 4.7 cm 2.6 - 4.4 Estimated RAP 15 mm Hg Legend: (L) and (H) abimbola values outside specified reference range. Prepared and electronically signed by Nj Garcia MD 10/18/2019 08:25
[2019-10-18] MEDS: cefTRIAXone(*) 1 GM in NS 0.9% 50 ML* 50 ML IVPB SCH (08:27)
[2019-10-18] MEDS: Multivitamins ADULT w/MIN LIQ* 15 ML UDC PO SCH (08:29)
[2019-10-18] MEDS: Folic Acid TAB* 1 MG PO SCH (08:29)
[2019-10-18] MEDS: Docusate LIQ* 100 MG/10 ML UDC PO SCH ×2 (08:29→20:35)
[2019-10-18] MEDS: Thiamine TAB* 100 MG TAB PO SCH (08:29)
[2019-10-18] MEDS: Senna TAB 8.6 mg* TAB PO SCH ×2 (08:29→20:35)
[2019-10-18] MEDS: Nystatin OINT* 15 GM TOPICAL SCH (08:37)
[2019-10-18] MEDS: Azithromycin IV(*) 250 MG in NS 0.9% 250 ML* 250 ML IVPB SCH (09:22)
[2019-10-18] MEDS: Dexmedetomidine* 1,000 MCG in NS 0.9% 250 ML* 240 ML IV SCH ×2 (09:27→23:08)
--- NOTE | 2019-10-18 11:45 | PN ---
Date of Service: 10/18/19 Critical Care Services: Overnight, patient started experiencing more frequent episodes of aflutter/ irregular HR. She received 1L bolus, transitioned to ladan from levo. Vital Signs: Temp Pulse Resp BP SpO2 FiO2 98.4 F 105 15 103/79 98 45 10/18/19 10:00 10/18/19 10:00 10/18/19 10:00 10/18/19 10:00 10/18/19 10:00 10/17 08:00 Physical Exam: Gen: Laying in bed, NAD, sedated on propofol. HEENT: Normocephalic, atraumatic, moist mucus membranes, neck supple Lungs: clear to auscultation, no rhonchi, crackles or wheezes Cardiac: regular, s1s2, no obvious murmurs Abdomen: obese, soft, BS present Extremities: Dirt under fingernails, toes are dirty and purple, no change since admission. Poor general circulation. warm to touch Skin: patient has very red, inflammed, rash with excoriated wounds to lower abdomen/panis/groin Neuro: Sedated, not paused for exam, PERRL 4mm. Breathing above vent. Minimal movement BUE on noxious stimuli. Fluid Balance (Past 24 Hours): I= O= Net Intake & Output 10/16/19 10/17/19 10/18/19 10/19/19 06:59 06:59 06:59 06:59 Intake Total 921 1120 4312.0 120 Output Total 1010 1960 1080 185 Balance -89 -840 3232.0 -65 Weight 213 lb 13.574 oz 211 lb 13.828 oz Intake: IV Fluids 491 450 4864.0 ABX - AZITHROMYCIN 270 ABX - CEFTRIAXONE 58 ABX - FLAGYL 108 NS (0.9%) 391 532 6936.0 IVPB 50 227 607 ABX - AZITHROMYCIN 250 ABX - CEFTRIAXONE 50 Flagyl 227 307 Vitamin K 50 Medicated IV 096 523 9745 CC - Norepinephrine/ 418 Levophed CC - Propofol/Diprivan 170 309 628 Tube Feeding 1301 Tube Feeding Flush Amount 100 NG Tube Irrigate Amount 120 Output: Castillo 1010 1960 1080 185 Labs: Laboratory Results - last 24 hr 10/17/19 10/17/19 10/17/19 16:02 16:02 17:13 WBC RBC Hgb Hct MCV MCH MCHC RDW Plt Count MPV Neut % (Auto) Lymph % (Auto) Campbell % (Auto) Eos % (Auto) Baso % (Auto) Absolute Neuts (auto) Absolute Lymphs (auto) Absolute Monos (auto) Absolute Eos (auto) Absolute Basos (auto) Absolute Nucleated RBC Nucleated RBC % INR (Anticoag Therapy) Sodium 131 L Potassium TNP TNP 4.5 Chloride 90 L Carbon Dioxide 37 H Anion Gap 4 BUN 27 H Creatinine 0.44 L Est GFR ( Amer) 179.6 Est GFR (Non-Af Amer) 148.5 BUN/Creatinine Ratio 61.4 H Glucose 185 H Calcium 7.6 L Magnesium Total Bilirubin Direct Bilirubin Indirect Bilirubin AST TNP 87 H ALT Alkaline Phosphatase Troponin I 0.05 H* Total Protein Albumin Globulin Albumin/Globulin Ratio 10/18/19 10/18/19 10/18/19 04:50 04:50 04:50 WBC 14.2 H RBC 4.84 Hgb 14.7 Hct 47 MCV 96 MCH 30 MCHC 32 RDW 16 H Plt Count 47 L MPV 10.0 Neut % (Auto) 82.0 Lymph % (Auto) 6.6 Campbell % (Auto) 10.1 Eos % (Auto) 0.8 Baso % (Auto) 0.5 Absolute Neuts (auto) 11.7 H Absolute Lymphs (auto) 0.9 L Absolute Monos (auto) 1.4 H Absolute Eos (auto) 0.1 Absolute Basos (auto) 0.1 Absolute Nucleated RBC 0.0 Nucleated RBC % 0.1 INR (Anticoag Therapy) 1.24 H Sodium 131 L Potassium 4.4 Chloride 94 L Carbon Dioxide 37 H Anion Gap BUN 20 Creatinine 0.41 L Est GFR ( Amer) 194.9 Est GFR (Non-Af Amer) 161.1 BUN/Creatinine Ratio 48.8 H Glucose 168 H Calcium 7.3 L Magnesium 2.2 Total Bilirubin 1.40 H Direct Bilirubin 0.70 H Indirect Bilirubin 0.7 AST 61 H ALT 322 H Alkaline Phosphatase 109 H Troponin I Total Protein 5.2 L Albumin 2.6 L Globulin 2.6 Albumin/Globulin Ratio 1.0 Studies: Gallbladder US 10/15: Hepatomegaly and hepatosteatosis CXR 10/15: no significant interval change CXR: 10/14: Mild patchy prominence of the interstitial markings and alveolar consolidation bilaterally concerning for bronchopneumonia without significant change. Suggestion of bulla at the left lung apex. Nutrition: Jevity @ 50 Impression: 53F with only known PMH COPD and etoh/tobacco abuse, presents on 10/15/19 with AMS and respiratory distress. She was ultimately intubated and COVID sent out. Transferred from [facility]. DIAGNOSES: 1. Acute hypoxic and hypercapnic respiratory failure 2. AMS 3. Transaminitis 4. Hyponatremia 5. COPD Plan: NEURO: - Sedated with propofol with goal RASS -2 - Patient unable to participate in PST with propofol so will transition to precedex. CVS: - Hypotension. Persistent. Switched to ladan from levo ON since tachycardia more frequent overnight. - right IJ placed 10/16/19 - Patient having intermittent episodes of irregular heart rhythm. It appears to be sinus arrhythmia, sometimes aflutter, and other times NSR rate controlled. - Continue with PRN metoprolol. - Will need anticoagulation d/t aflutter, but is having significant bruising. If platelet count is higher tomorrow, consider switching to therapeutic lovenox. - Troponins trended down PULMONARY: - Acute hypoxic and hypercapnic respiratory failure. Bringing down pressure control, control EtCO2. - Attempted PST but she became agitated and desatting. Will need to adjust sedation accordingly - Daily PST as tolerated - Chest xray appears stable - COPD. Continue supportive treatment. Patient continues to smoke 1-2 PPD per her son. - Lots of thick secretions, will start scheduled guafinesin. GI: - Continue TF. Jevity @ 50cc/hr which is goal. - LFTs are trending down. RUQ US showed only hepatomegaly and hepatosteatos - Continue bowel meds RENAL: - Replace electrolytes to keep K >4 and mag >2. - Continue castillo ENDOCRINE: - Na 122 on presentation - Na is normalizing. HEME: - INR trending down. - Thrombocytopenia. acute, unknown baseline or etiology. Infection vs etoh abuse. - Continue lovenox 40mg daily for now ID: - WBC trending down. Afebrile. Her blood cultures from 10/14 have grown branhamella catarrhalis. We will continue azithromycin x 5 days total, discontinue flagyl, and continue ceftriaxone x 2 weeks total Wounds: significant rash/excoriation to abdomen/panis/groin. Wound care consult ordered GI prophylaxis: PPI DVT prophylaxis: SCDs and lovenox Code status: full Disposition: patient requires critical care for respiratory failure, ventilator management Critical Care Time: 30 mins
[2019-10-18] MEDS: Enoxaparin(*) 40 MG/0.4 ML SYR SUBCUT SCH ×2 (11:51→21:24)
[2019-10-18] MEDS: guaiFENesin 100 mg/5 ml LIQ unit dose cup PO SCH ×2 (11:52→16:54)
[2019-10-18] MEDS ORDERED: Enoxaparin(*) 100 MG/ML SYR SUBCUT SCH (12:00)
[2019-10-18] MEDS: Pantoprazole IV* 40 MG IV SCH (14:24)
[2019-10-18] MEDS: Magnesium Hydroxide LIQ* 30 ML UDC PO SCH ×2 (14:24→20:35)
--- NOTE | 2019-10-18 17:07 | CONSULT ---
Subjective Date of Service: 10/18/19 Interval History: Ms. Dee is a 53 yo male with PMH significant for COPD, ETOH abuse, other PMH unknown as she has not seen a provider in 10 years. She presented to [facility] for AMS and respiratory distress. She was found to have hypercarbic respiratory failure requiring BiPAP. She was intubated and transferred to [facility]. She was also found to have MITCHELL, transaminitis, and supratherapeutic INR. She was ruled out for COVID 19 and remains intubated in the ICU. She presented to the hospital with a large area of erythema and excoriation in the groin and ABD fold. She was started on Nystatin cream. Family History: Unchanged from Admission Social History: Unchanged from Admission Past Medical History: Unchanged from Admission Review of Systems - Measurements Intake and Output: Intake and Output Last 24 Hours 10/16/19 10/17/19 10/18/19 10/19/19 06:59 06:59 06:59 06:59 Intake Total 921 1120 4312.0 1846.4 Output Total 1010 1960 1080 400 Balance -89 -840 3232.0 1446.4 Weight 213 lb 13.574 oz 211 lb 13.828 oz Intake: IV Fluids 936 588 8247.0 582 ABX - AZITHROMYCIN 270 ABX - CEFTRIAXONE 58 ABX - FLAGYL 108 Flagyl 582 NS (0.9%) 891 045 7165.0 IVPB 50 227 607 400 ABX - AZITHROMYCIN 250 250 ABX - CEFTRIAXONE 50 50 Flagyl 227 307 100 Vitamin K 50 Medicated IV 505 446 5862 298.4 CC - Dexmedetomidine/ 90.4 Precedex CC - Norepinephrine/ 418 Levophed CC - Phenylephrine/ 113 Neosynephrine CC - Propofol/Diprivan 170 309 628 95 Tube Feeding 1301 386 Tube Feeding Flush Amount 100 NG Tube Irrigate Amount 180 Output: Amezquita 1010 1960 1080 400 - Review of Systems General Comments: Unable to perform ROS, Pt is sedated and intubated. Objective Active Medications: Chlorhexidine Gluconate (Peridex Mouth Wash 0.12%*) 15 ml TOPICAL Q4H DONNA Docusate Sodium (Colace Liq*) 100 mg PO BID DONNA Enoxaparin Sodium (Lovenox(*)) 40 mg SUBCUT Q24H DONNA Folic Acid (Folvite Tab*) 1 mg PO DAILY [facility] Guaifenesin (Robitussin 100 Mg/5ml Liq) 5 ml PO Q6H DONNA Propofol (Diprivan*) 100 mls @ 0 mls/hr IV .PER PROTOCOL DONNA; Protocol Azithromycin 250 mg/ Sodium (Chloride) 250 mls @ 250 mls/hr IVPB Q24H DONNA Ceftriaxone Sodium 1 gm/ (Sodium Chloride) 50 mls @ 100 mls/hr IVPB Q24H [facility] Sodium Chloride (Ns 0.9% 1000 Ml) 1,000 mls @ 100 mls/hr IV PER RATE DONNA Phenylephrine HCl 50 mg/ (Sodium Chloride) 250 mls @ 15 mls/hr IV .PER PROTOCOL DONNA; Protocol Dexmedetomidine HCl 1,000 mcg/ (Sodium Chloride) 250 mls @ 4.8 mls/hr IV .PER PROTOCOL DONNA; Protocol Magnesium Hydroxide (Milk Of Magnesia Liq*) 30 ml PO BID [facility] Metoprolol Tartrate (Lopressor Iv*) 5 mg IV Q6H PRN Reason: TACHYCARDIA Multivitamins (Theragran W/Minerals Liq*) 15 ml PO DAILY [facility] Nystatin (Nystatin Oint*) 1 applic TOPICAL BID [facility] Pantoprazole Sodium (Protonix Iv*) 40 mg IV Q24H [facility] Senna (Senokot 8.6 Mg Tab*) 2 tab PO BID [facility] Thiamine HCl (Vitamin B-1 Tab*) 100 mg PO DAILY [facility] Vital Signs 10/18/19 10/18/19 10/18/19 15:01 15:16 15:31 Temperature 99.3 F 99.3 F 99.7 F Pulse Rate 86 86 84 Respiratory Rate Blood Pressure 118/84 118/85 91/60 (mmHg) O2 Sat by Pulse 99 99 99 Oximetry 10/18/19 10/18/19 15:45 16:00 Temperature 99.7 F 99.7 F Pulse Rate 87 86 Respiratory 12 Rate Blood Pressure 112/68 121/81 (mmHg) O2 Sat by Pulse 97 99 Oximetry Oxygen Devices in Use Now: Endotracheal Tube, Mechanical Ventilator Appearance: NAD, laying in bed Ears/Nose/Mouth/Throat: Mucous Membranes Moist Skin: - - See skin note below Neurological: - - Sedated Result Diagrams: 10/20/19 05:50 10/20/19 11:32 Additional Lab and Data: Above labs were pulled into the note, when the note was edited prior to signing. See below for labs from the day of consultation. Laboratory Tests 10/18/19 10/18/19 04:50 04:50 WBC 14.2 H Hgb 14.7 Hct 47 Plt Count 47 L Sodium 131 L Potassium 4.4 Chloride 94 L Carbon Dioxide 37 H BUN 20 Creatinine 0.41 L Glucose 168 H Total Protein 5.2 L Albumin 2.6 L Skin Deviation Note - Skin Deviation Findings Left lower abdomen - There are 2 small superficial open areas in the umbilicus. The lower ABD with multiple small open areas, the total area is 14 cm x 3 cm x < 0.1 cm. The wound bases area red epithelial tissue. The surrounding skin is intact. There is scant serous drainage. Left abdominal fold - There is mild erythema and a small open area that measures 0.2 cm x 0.2 cm x < 0.1 cm. The wound base is yellow, suspect this is the nystatin cream. Right abdominal fold - There is a superficial open area, measures 1 cm x 1.2 cm x < 0.1 cm. The wound base is red epithelial tissue. The surrounding skin is intact. There is scant serous drainage. Wound Problem/Plan Assessment: Ms. Dee is a 53 yo male with PMH significant for COPD, ETOH abuse, other PMH unknown as she has not seen a provider in 10 years. She presented to [facility] for AMS and respiratory distress. She was found to have hypercarbic respiratory failure requiring BiPAP. She was intubated and transferred to [facility]. She was also found to have MITCHELL, transaminitis, and supratherapeutic INR. She was ruled out for COVID 19 and remains intubated in the ICU. She presented to the hospital with a large area of erythema and excoriation in the groin and ABD fold. She was started on Nystatin cream. 1. Abdominal wounds. ABD fold and pannis with multiple superficial open areas. Suspect that this is secondary to candidiasis and moisture. Discontinue Nystatin cream. Recommend washing the ABD folds and groin with soap and water, pat dry and then apply Nystatin powder BID. Keep a pillow case in the ABD fold to decrease moisture. 2. Respiratory failure, hypercarbic. Remains intubated. 3. Obesity. BMI 36.2. 4. Nutrition. At risk nutrition, albumin 2.6 and protein 5.2. Recommend meeting minimal nutritional requirements to assist with wound healing (Protein 1.3-1.5 luz/kg per day and Calories 30-35 kcal/kg per day; this may need to be adjusted for ideal body weight). Tube feeding diet. 5. Code Status. Full Code Status. 6. Disposition. Inpatient, disposition per primary team. TIME SPENT: Time for this wound consultation was 30 minutes and 20 minutes was spent at the bedside assessing, measuring, and photographing the wounds. Is Patient a Wound Clinic Patient: No Attending: Elizabeth Martinez
[2019-10-18 17:33] LABS: Prealbumin 5 mg/dL (18-38)
[2019-10-18] MEDS: Nystatin TOP POWDER* 15 GM BTL TOPICAL SCH (20:36)
[2019-10-19] MEDS: Chlorhexidine MOUTHWASH 0.12%* 15 ML UDC TOPICAL SCH ×6 (00:28→21:44)
[2019-10-19] MEDS: guaiFENesin 100 mg/5 ml LIQ unit dose cup PO SCH ×4 (00:28→17:06)
[2019-10-19] MEDS: NS 0.9% 1000 ML** 1,000 ML IV SCH (02:46)
[2019-10-19 05:25] LABS: ABS Basophils 0.1 10^3/ul (0-0.2); ABS Eosinophils 0.1 10^3/ul (0-0.6); ABS Lymphocytes 1.4 10^3/ul (1.0-4.8); ABS Monocytes 1.8 10^3/ul (0-0.8); ABS Neutrophils 10.7 10^3/ul (1.5-7.7); Hematocrit 46 % (35-47); Hemoglobin 14.6 g/dL (12.0-16.0); Mean Corpuscular HGB Conc 32 g/dL (31-36); Mean Corpuscular Hemoglobin 31 pg (27-31); Mean Corpuscular Volume 97 fL (80-97); Nucleated Red Blood Cells % 0.2; Platelet Count 66 10^3/uL (150-450); Red Blood Count 4.75 10^6 /uL (3.70-4.87); Red Cell Distribution Width 16 % (10-15)
[2019-10-19] MEDS: Propofol* 100 ML IV SCH (05:30)
[2019-10-19 05:41] LABS: BUN/Creatinine Ratio 54.1 (8-20); Blood Urea Nitrogen 20 mg/dL (6-24); CO2 Carbon Dioxide 34 mmol/L (22-32); Calcium 7.1 mg/dL (8.6-10.3); Chloride 98 mmol/L (101-111); EGFR African American 219.4 (>60); EGFR Non-African American 181.3 (>60); Glucose 158 mg/dL (70-100); Magnesium 2.6 mg/dL (1.9-2.7); Sodium 131 mmol/L (135-145)
[2019-10-19 05:42] LABS: Potassium 5.9 mmol/L (3.5-5.0)
[2019-10-19] MEDS: cefTRIAXone(*) 1 GM in NS 0.9% 50 ML* 50 ML IVPB SCH (09:54)
[2019-10-19] MEDS: Multivitamins ADULT w/MIN LIQ* 15 ML UDC PO SCH (10:01)
[2019-10-19] MEDS: Folic Acid TAB* 1 MG PO SCH (10:01)
[2019-10-19] MEDS: Docusate LIQ* 100 MG/10 ML UDC PO SCH ×2 (10:01→21:44)
[2019-10-19] MEDS: Magnesium Hydroxide LIQ* 30 ML UDC PO SCH ×2 (10:01→21:44)
[2019-10-19] MEDS: Senna TAB 8.6 mg* TAB PO SCH ×2 (10:01→21:44)
[2019-10-19] MEDS: Thiamine TAB* 100 MG TAB PO SCH (10:01)
[2019-10-19] MEDS: Nystatin TOP POWDER* 15 GM BTL TOPICAL SCH ×2 (10:08→21:45)
[2019-10-19] MEDS: Azithromycin IV(*) 250 MG in NS 0.9% 250 ML* 250 ML IVPB SCH (10:41)
[2019-10-19 11:02] LABS: Urine Appearance Cloudy; Urine Bilirubin Negative (Negative); Urine Blood 3+ (Negative); Urine Color Amber; Urine Glucose Negative (Negative); Urine Ketones Negative (Negative); Urine Nitrite Negative (Negative); Urine Protein 2+(100 mg/dL) (Negative); Urine Specific Gravity 1.027 (1.010-1.030); Urine Urobilinogen Positive (Negative)
[2019-10-19 11:06] LABS: Urine Bacteria Absent (Absent); Urine Red Blood Cell 3+(>10/hpf) (Absent); Urine White Blood Cell Absent (Absent)
[2019-10-19] MEDS: Pantoprazole IV* 40 MG IV SCH (12:33)
[2019-10-19] MEDS: Enoxaparin(*) 40 MG/0.4 ML SYR SUBCUT SCH (12:35)
[2019-10-19] MEDS ORDERED: Iohexol 350* (CONTRAST) 500 ML MDV IV ONE (13:13)
--- NOTE | 2019-10-19 15:14 | PN ---
Date of Service: 10/19/19 Critical Care Services: Patient examined, some lower sats on vent with mucous plugging today. Required lavage with suctioning several times with good effect. Failed spontaneous trials yesterday. Unable to maintain volumes. RN did discuss POC with patient's son today. Vital Signs: Temp Pulse Resp BP SpO2 FiO2 100.8 F 83 16 101/71 95 40 10/19/19 14:00 10/19/19 14:00 10/19/19 13:00 10/19/19 14:00 10/19/19 14:00 10/18 12:00 Physical Exam: Gen: Laying in bed, NAD, sedated on propofol. HEENT: Normocephalic, atraumatic, moist mucus membranes, neck supple Lungs: clear to auscultation, no rhonchi, crackles or wheezes Cardiac: regular, s1s2, regular no murmurs Abdomen: obese, soft, BS present, pannis with open areas, wound beds clean Extremities: Dirt under fingernails, toes are dirty and purple, no change since admission. Poor general circulation. warm to touch, bruises and ecchymosis bilaterally to forearms in varying stages of healing - per RN, present on admission Skin: patient has very red, inflammed, rash with excoriated wounds to lower abdomen/panis/groin Neuro: Sedated, RASS -3 Fluid Balance (Past 24 Hours): I= O= Net Intake & Output 10/17/19 10/18/19 10/19/19 10/20/19 06:59 06:59 06:59 06:59 Intake Total 1120 4312.0 4040.2 Output Total 1960 1080 601 90 Balance -840 3232.0 3439.2 -90 Weight 211 lb 13.828 oz 227 lb 4.745 oz 227 lb Intake: IV Fluids 584 1258.0 1353 ABX - AZITHROMYCIN 270 ABX - CEFTRIAXONE 58 ABX - FLAGYL 108 Flagyl 582 NS (0.9%) 148 1258.0 771 IVPB 768 404 5942 ABX - AZITHROMYCIN 250 250 ABX - CEFTRIAXONE 50 50 Flagyl 227 307 100 NS (0.9%) 801 Medicated IV 309 1046 920.2 CC - Dexmedetomidine/ 378.4 Precedex CC - Norepinephrine/ 418 Levophed CC - Phenylephrine/ 320.3 Neosynephrine CC - Propofol/Diprivan 309 628 221.5 Tube Feeding 1301 386 Tube Feeding Flush Amount 100 NG Tube Irrigate Amount 180 Output: Castillo 1960 1080 601 90 Other: Estimated Void Large Labs: Laboratory Results - last 24 hr 10/18/19 10/19/19 10/19/19 04:50 05:10 05:10 WBC 14.0 H RBC 4.75 Hgb 14.6 Hct 46 MCV 97 MCH 31 MCHC 32 RDW 16 H Plt Count 66 L MPV 9.0 Neut % (Auto) 76.0 Lymph % (Auto) 10.0 [place] % (Auto) 12.6 Eos % (Auto) 1.0 Baso % (Auto) 0.4 Absolute Neuts (auto) 10.7 H Absolute Lymphs (auto) 1.4 Absolute Monos (auto) 1.8 H Absolute Eos (auto) 0.1 Absolute Basos (auto) 0.1 Absolute Nucleated RBC 0.0 Nucleated RBC % 0.2 D-Dimer, Quantitative Patient Temperature ABG pH ABG pH (Temp Correct) ABG pCO2 ABG pCO2 (Temp Corrct ABG pO2 ABG pO2 (Temp Correct ABG HCO3 ABG O2 Saturation ABG Base Excess Respiration Rate O2 Delivery Device Ventilator Type Vent Mode FiO2 Inspiratory Time PEEP Pressure Support Pressure Control EPAP IPAP BiPAP Sodium 131 L 131 L Potassium 4.4 5.9 H D Chloride 94 L 98 L Carbon Dioxide 37 H 34 H Anion Gap Not Reportable BUN 20 20 Creatinine 0.41 L 0.37 L Est GFR ( Amer) 194.9 219.4 Est GFR (Non-Af Amer) 161.1 181.3 BUN/Creatinine Ratio 48.8 H 54.1 H Glucose 168 H 158 H Calcium 7.3 L 7.1 L Magnesium 2.2 2.6 Total Bilirubin 1.40 H Direct Bilirubin 0.70 H Indirect Bilirubin 0.7 AST 61 H ALT 322 H Alkaline Phosphatase 109 H Total Creatine Kinase Total Protein 5.2 L Albumin 2.6 L Globulin 2.6 Albumin/Globulin Ratio 1.0 Prealbumin 5 L Urine Color Urine Appearance Urine pH Ur Specific [place] Urine Protein Urine Ketones Urine Blood Urine Nitrate Urine Bilirubin Urine Urobilinogen Ur Leukocyte Esterase Urine WBC (Auto) Urine RBC (Auto) Urine Bacteria Urine Glucose Urine Ascorbic Acid 10/19/19 10/19/19 10/19/19 09:15 10:39 10:39 WBC RBC Hgb Hct MCV MCH MCHC RDW Plt Count MPV Neut % (Auto) Lymph % (Auto) [place] % (Auto) Eos % (Auto) Baso % (Auto) Absolute Neuts (auto) Absolute Lymphs (auto) Absolute Monos (auto) Absolute Eos (auto) Absolute Basos (auto) Absolute Nucleated RBC Nucleated RBC % D-Dimer, Quantitative > 1050 H Patient Temperature 37.9 ABG pH 7.38 ABG pH (Temp Correct) Not Reportable ABG pCO2 57 H ABG pCO2 (Temp Corrct Not Reportable ABG pO2 85 ABG pO2 (Temp Correct Not Reportable ABG HCO3 30.2 ABG O2 Saturation 98.7 H ABG Base Excess 6.8 H Respiration Rate 15 O2 Delivery Device vent Ventilator Type Not Reportable Vent Mode Pcv FiO2 40 Inspiratory Time .7 PEEP 5 Pressure Support Not Reportable Pressure Control 25 EPAP Not Reportable IPAP Not Reportable BiPAP Not Reportable Sodium Potassium Chloride Carbon Dioxide Anion Gap BUN Creatinine Est GFR ( Amer) Est GFR (Non-Af Amer) BUN/Creatinine Ratio Glucose Calcium Magnesium Total Bilirubin Direct Bilirubin Indirect Bilirubin AST ALT Alkaline Phosphatase Total Creatine Kinase 22 Total Protein Albumin Globulin Albumin/Globulin Ratio Prealbumin Urine Color Urine Appearance Urine pH Ur Specific [place] Urine Protein Urine Ketones Urine Blood Urine Nitrate Urine Bilirubin Urine Urobilinogen Ur Leukocyte Esterase Urine WBC (Auto) Urine RBC (Auto) Urine Bacteria Urine Glucose Urine Ascorbic Acid 10/19/19 10:46 WBC RBC Hgb Hct MCV MCH MCHC RDW Plt Count MPV Neut % (Auto) Lymph % (Auto) [place] % (Auto) Eos % (Auto) Baso % (Auto) Absolute Neuts (auto) Absolute Lymphs (auto) Absolute Monos (auto) Absolute Eos (auto) Absolute Basos (auto) Absolute Nucleated RBC Nucleated RBC % D-Dimer, Quantitative Patient Temperature ABG pH ABG pH (Temp Correct) ABG pCO2 ABG pCO2 (Temp Corrct ABG pO2 ABG pO2 (Temp Correct ABG HCO3 ABG O2 Saturation ABG Base Excess Respiration Rate O2 Delivery Device Ventilator Type Vent Mode FiO2 Inspiratory Time PEEP Pressure Support Pressure Control EPAP IPAP BiPAP Sodium Potassium Chloride Carbon Dioxide Anion Gap BUN Creatinine Est GFR ( Amer) Est GFR (Non-Af Amer) BUN/Creatinine Ratio Glucose Calcium Magnesium Total Bilirubin Direct Bilirubin Indirect Bilirubin AST ALT Alkaline Phosphatase Total Creatine Kinase Total Protein Albumin Globulin Albumin/Globulin Ratio Prealbumin Urine Color Marva Urine Appearance Cloudy Urine pH 6.0 Ur Specific [place] 1.027 Urine Protein 2+(100 mg/dl) A Urine Ketones Negative Urine Blood 3+ A Urine Nitrate Negative Urine Bilirubin Negative Urine Urobilinogen Positive A Ur Leukocyte Esterase Negative Urine WBC (Auto) Absent Urine RBC (Auto) 3+(>10/hpf) A Urine Bacteria Absent Urine Glucose Negative Urine Ascorbic Acid * A Studies: CTA CHEST: IMPRESSION: No definite pulmonary embolus is noted. No evidence of aneurysmal dilatation of the aorta or aortic dissection is noted. Bibasilar atelectasis is noted worse on the left than on the right with small pleural effusions. Suggestion of a nodule in the left lower lobe measuring up to 1.8 cm is noted. It is difficult to differentiate between the mass and some nodular atelectasis and follow-up exam is suggested. Gallbladder US 10/15: Hepatomegaly and hepatosteatosis CXR 10/15: no significant interval change CXR: 10/14: Mild patchy prominence of the interstitial markings and alveolar consolidation bilaterally concerning for bronchopneumonia without significant change. Suggestion of bulla at the left lung apex Nutrition: Jevity tube feeds @50ml/hr Impression: 53F with only known PMH COPD and etoh/tobacco abuse, presents on 10/15/19 with AMS and respiratory distress. She was ultimately intubated and COVID sent out. Transferred from [facility]. DIAGNOSES: 1. Acute hypoxic and hypercapnic respiratory failure 2. AMS 3. Transaminitis 4. Hyponatremia 5. COPD 6. Right RV Strain 7. Elevated DDimer Plan: NEURO: - Sedated with propofol with goal RASS -2 - On propofol/precedex CVS: - Titrate neosynephrine to MAPS>65 - right IJ placed 10/16/19 - Patient having intermittent episodes of irregular heart rhythm. It appears to be sinus arrhythmia, sometimes aflutter, and other times NSR rate controlled. - ECHO with right RV strain and septal wall flattening, concern given hypoxia and SOB with troponinemia and hypotension at [place], patient was ruled out for PE, DDimer checked which is >1050. CTA chest is negative for PE today. Likey RV changes in setting of advanced emphysema, possible untreated ANNA. - Continue with PRN metoprolol. - Will need anticoagulation d/t aflutter, but is having significant bruising. PLTS still low, 67 today, would wait a few days to see if she stays consistently >50 before anticoagulating. PULMONARY: - Acute hypoxic and hypercapnic respiratory failure. Bringing down pressure control, control EtCO2. - Failed spont trial yesterday. - CTA chest negative for PE, but she does have blebs and emphysematous changes and possible nodule LLL, remains an active 1-2 PPD smoker - Lots of thick secretions, continue mucinex GI: - Continue TF. Jevity @ 50cc/hr which is goal. - LFTs are trending down. RUQ US showed hepatomegaly and hepatosteatos, send hepatitis panel, possible alcoholic hepatitis? - Continue bowel meds RENAL: - Replace electrolytes to keep K >4 and mag >2. - Continue castillo ENDOCRINE: - Na 122 on presentation, 130 today, improving HEME: - INR trending down. - Thrombocytopenia. acute, unknown baseline or etiology. Infection vs etoh abuse. ID: - WBC trending down. Afebrile. Her blood cultures from 10/14 have grown branhamella catarrhalis. We will continue azithromycin x 5 days total, discontinue flagyl, and continue ceftriaxone x 2 weeks total - Send hepatitis panel - Continue nystatin to panis Wounds: significant rash/excoriation to abdomen/panis/groin. Wound care consult ordered GI prophylaxis: PPI DVT prophylaxis: SCDs, hold AC for now until PLTS stable Code status: full Disposition: patient requires critical care for respiratory failure, ventilator management Critical Care Time: 40 mins
[2019-10-19 17:15] LABS: Hepatitis B Surface Antigen Nonreactive (Nonreactive)
[2019-10-19 17:33] LABS: Hepatitis C Antibody Negative (Negative)
[2019-10-20] MEDS: Chlorhexidine MOUTHWASH 0.12%* 15 ML UDC TOPICAL SCH ×4 (00:33→11:42)
[2019-10-20] MEDS: guaiFENesin 100 mg/5 ml LIQ unit dose cup PO SCH ×3 (00:33→11:42)
[2019-10-20] MEDS: NS 0.9% 1000 ML** 1,000 ML IV SCH (00:58)
[2019-10-20] MEDS ORDERED: Morphine INJ* 2 MG/ML 1 ML SYRINGE (TWO MG - NEW SYRINGE VERSION) IV PRN (01:55)
[2019-10-20] MEDS: Phenylephrine 10 MG/ML VIAL* 50 MG in NS 0.9% 250 ML* 245 ML IV SCH (02:33)
[2019-10-20] MEDS: Propofol* 100 ML IV SCH ×2 (04:40→10:21)
[2019-10-20 06:25] LABS: BUN/Creatinine Ratio 56.1 (8-20); Blood Urea Nitrogen 23 mg/dL (6-24); CO2 Carbon Dioxide 33 mmol/L (22-32); Calcium 7.4 mg/dL (8.6-10.3); Chloride 101 mmol/L (101-111); EGFR African American 194.9 (>60); EGFR Non-African American 161.1 (>60); Glucose 154 mg/dL (70-100); Magnesium 2.8 mg/dL (1.9-2.7); Sodium 132 mmol/L (135-145)
[2019-10-20 06:26] LABS: ABS Basophils 0.1 10^3/ul (0-0.2); ABS Eosinophils 0.1 10^3/ul (0-0.6); ABS Lymphocytes 1.3 10^3/ul (1.0-4.8); ABS Monocytes 1.9 10^3/ul (0-0.8); ABS Neutrophils 11.7 10^3/ul (1.5-7.7); Eosinophil % 0.6 %; Hematocrit 45 % (35-47); Hemoglobin 13.9 g/dL (12.0-16.0); Lymphocyte % 8.6 %; Mean Corpuscular HGB Conc 31 g/dL (31-36); Mean Corpuscular Hemoglobin 31 pg (27-31); Mean Corpuscular Volume 99 fL (80-97); Mean Platelet Volume 9.3 fL (7.4-10.4); Platelet Count 85 10^3/uL (150-450); Red Blood Count 4.58 10^6 /uL (3.70-4.87); Red Cell Distribution Width 16 % (10-15); White Blood Count 15.1 10^3/uL (3.5-10.8)
[2019-10-20 06:35] LABS: Potassium 6.7 mmol/L (3.5-5.0)
[2019-10-20] MEDS ORDERED: CALCIUM GLUCONATE 1GM/50ML NS 1 GM/50 ML BAG IV ONE (06:40)
[2019-10-20] MEDS ORDERED: Insulin REGULAR(*) 1 UNITS UNIT IV PUSH ONE ×2 (06:40→12:36)
[2019-10-20] MEDS: Dextrose 50% Syringe 50 ML* 25 GM/50 ML SYRINGE IV PUSH ONE ×2 (07:06→07:14)
[2019-10-20] MEDS: cefTRIAXone(*) 1 GM in NS 0.9% 50 ML* 50 ML IVPB SCH (08:55)
[2019-10-20] MEDS: Azithromycin IV(*) 250 MG in NS 0.9% 250 ML* 250 ML IVPB SCH (08:55)
[2019-10-20] MEDS: Magnesium Hydroxide LIQ* 30 ML UDC PO SCH (08:55)
[2019-10-20] MEDS: Docusate LIQ* 100 MG/10 ML UDC PO SCH (08:55)
[2019-10-20] MEDS: Multivitamins ADULT w/MIN LIQ* 15 ML UDC PO SCH (08:55)
[2019-10-20] MEDS: Nystatin TOP POWDER* 15 GM BTL TOPICAL SCH (08:56)
[2019-10-20] MEDS: Thiamine TAB* 100 MG TAB PO SCH (08:56)
[2019-10-20] MEDS: Folic Acid TAB* 1 MG PO SCH (08:56)
[2019-10-20] MEDS: Senna TAB 8.6 mg* TAB PO SCH (08:59)
[2019-10-20] MEDS: Dexmedetomidine* 1,000 MCG in NS 0.9% 250 ML* 240 ML IV SCH (09:21)
[2019-10-20] MEDS: Albumin Human 5%* 12.5 GM/250 ML BTL IV SCH ×2 (11:41→13:26)
[2019-10-20] MEDS: Enoxaparin(*) 40 MG/0.4 ML SYR SUBCUT SCH (11:42)
[2019-10-20 12:15] LABS: BUN/Creatinine Ratio 53.7 (8-20); Blood Urea Nitrogen 22 mg/dL (6-24); CO2 Carbon Dioxide 34 mmol/L (22-32); Calcium 7.9 mg/dL (8.6-10.3); Chloride 101 mmol/L (101-111); EGFR African American 194.9 (>60); EGFR Non-African American 161.1 (>60); Glucose 143 mg/dL (70-100); Sodium 133 mmol/L (135-145)
[2019-10-20 12:18] LABS: Potassium 6.6 mmol/L (3.5-5.0)
[2019-10-20] MEDS ORDERED: Sodium Polystyrene ORAL.SUSP* 15 GM/60 ML BTL PO ONE ×2 (12:37→12:38)
[2019-10-20] MEDS ORDERED: Dextrose 50% Syringe 50 ML* 25 GM/50 ML SYRINGE IV PUSH ONE (12:40)
[2019-10-20] MEDS: Pantoprazole IV* 40 MG IV SCH (13:27)
[2019-10-20 15:15] VITALS: BP 94/68
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
[2019-10-20 17:01] LABS: Creatine Kinase 27 U/L (10-223)
== END 2019-10-20 16:10 | disposition short-term general hospital (02) | DRG 133 ==
LOC: ICU 11:55
PROVIDERS: ADMIT Surgery Surgical Critical Care; ATTEND Internal Medicine
PROC: 05HM33Z Insertion of Infusion Device into Right Internal Jugular Vein, Percutaneous Approach (ICD-10-PCS; 2019-10-16)
PROC: 5A1945Z Respiratory Ventilation, 24-96 Consecutive Hours (ICD-10-PCS; principal; 2019-10-18)
DX: J96.02 Acute respiratory failure with hypercapnia (principal); N17.9 Acute kidney failure, unspecified; E87.1 Hypo-osmolality and hyponatremia; I48.92 Unspecified atrial flutter; J96.01 Acute respiratory failure with hypoxia; R79.1 Abnormal coagulation profile; E66.9 Obesity, unspecified; R74.0 Nonspecific elevation of levels of transaminase and lactic acid dehydrogenase [LDH]; D69.6 Thrombocytopenia, unspecified; R21 Rash and other nonspecific skin eruption; I51.9 Heart disease, unspecified; D72.829 Elevated white blood cell count, unspecified; J44.9 Chronic obstructive pulmonary disease, unspecified; I95.9 Hypotension, unspecified; T17.990A Other foreign object in respiratory tract, part unspecified in causing asphyxiation, initial encounter; R34 Anuria and oliguria; E87.5 Hyperkalemia; Z87.891 Personal history of nicotine dependence; Z88.0 Allergy status to penicillin; Z68.36 Body mass index [BMI] 36.0-36.9, adult; Z79.899 Other long term (current) drug therapy
CPT/HCPCS: 36415; 36600; 71045; 71275; 76705; 76770; 80048; 80053; 80074; 80076; 81003; 81015; 82550; 82803; 83605; 83735; 84100; 84132; 84134; 84484; 85025; 85027; 85379; 85610; 87070; 87205; 93005; 93306; 94002; 94003; A9270-GY; J0456; J0610; J0696; J0744; J1650; J1940; J2270; J2704; J3430; J3490; P9045; Q9967